=== PATIENT | male | born 1955 | race Caucasian/White ===

== ENCOUNTER 2022-11-01 23:19 | Emergency (ER) | payer OTHER, SELFPAY ==
[2022-11-01 23:21] VITALS: BP 168/94; PULSE 79; RESP 18; TEMP 37; O2SAT 98; BMI 27.9
--- NOTE | 2022-11-01 23:32 | RAD_ITS ---
EXAM: XR LEFT FOOT COMPLETE, 3 OR MORE VIEWS CLINICAL INDICATION: injury TECHNIQUE: Frontal, lateral and oblique views of the left foot. COMPARISON: No relevant prior studies available. FINDINGS: LIMITATIONS: Exam limited by positioning, with the second through fifth toes in flexion. BONES/JOINTS: Unremarkable. No acute fracture. No subluxation. Normal alignment. Preservation of the joint space. No sclerotic or destructive changes observed. SOFT TISSUES: Unremarkable. No soft tissue swelling or gas. No radiopaque foreign body. RAD/Foot min 3 Views IMPRESSION: Exam limited by positioning, with the second through fifth toes in flexion. No definite acute injuries identified. Electronically Signed: Parish Barrera MD at 23:59 EDT ,
--- NOTE | 2022-11-01 23:38 | ED.VIS.LOWEX ---
HPI History of Present Illness Chief Complaint: Lower Extremity Injury Informant: patient Narrative Narrative: Patient was at work and unloading a trailer, a large piece of metal slid out and landed on his left foot, he had his steel toed boots on but it hit him in the foot right behind the steel toe. He complains of mild pain in the great toe, he is on clopidogrel. Able to walk no other injuries. PFSH PFSH Allergy/AdvReac Type Severity Reaction Status Date / Time No Known Allergies Allergy Verified 11/01/22 23:20 Social History Smoking Status: Never smoker ROS ROS ED Constitutional Constitutional ED: Denies chills or fever(s) Musculoskeletal Musculoskeletal: Reports extremity pain; Denies neck pain Integumentary Denies Abrasions, rash or wounds Neurologic Neurologic: Denies paresthesias or weakness EXAM Physical Exam Const Vital Signs: 11/01/22 23:21 Temperature 98.6 F Temperature Source Temporal Pulse Rate 79 Respiratory Rate 18 Blood Pressure 168/94 H Blood Pressure Mean 118 Pulse Ox 98 Oxygen Delivery Method Room Air Positive well nourished and well developed General Appearance ED: well developed and NAD Neck full ROM and supple Back/Spine normal ROM and normal to inspection Extremity Extremity Narrative: There is some mild swelling and ecchymosis in left foot toes 1-3, but only the great toe is mildly tender there is no deformity or nail injury or subungual hematoma. There is no tenderness in the metatarsals, or the other toes. Full range of motion. Neuro oriented x3, no focal motor deficits and no sensory deficits noted Sensorium / Orientation: alert Psych mental status grossly normal and thought process normal Skin no wounds Rashes: no rashes MDM MDM MDM Narrative Medical decision making narrative: Three-view x-ray series of the left foot on my interpretation shows no acute fracture or dislocation. Patient reassured, he will be offered ice and Tylenol, he does feel he can continue doing his job, and walking with his shoes as usual. Discharge Plan Triage Chief Complaint: Lower Extremity Injury ED Provider: Amador Lyle Dx/Rx/DC Orders Clinical Impression: Contusion of foot, left Instructions: ED Foot Contusion Referrals: [facility] [Group of Physicians] - As Needed Disposition Disposition: Home, Self Care
[2022-11-02] MEDS: Acetaminophen 500 MG Tablet 1000 MG PO (00:05)
== END 2022-11-02 00:37 | disposition home or self-care (01) ==
LOC: ED 23:54
PROVIDERS: Emergency Provider Emergency Medicine; PCP Family Medicine; Visit Provider Emergency Medicine
DX: S90.32XA Contusion of left foot, initial encounter (principal); W20.8XXA Other cause of strike by thrown, projected or falling object, initial encounter; Y99.0 Civilian activity done for income or pay; Z79.02 Long term (current) use of antithrombotics/antiplatelets
CPT/HCPCS: 73630; 99283